=== PATIENT | female | born 1995 | race Two or more races ===

== ENCOUNTER 2023-04-05 14:15 | Inpatient (IN) | payer OTHER ==
[~2023-04-05] VITALS: Ht 162.6 cm; Wt 70.8 kg
[2023-04-14] MEDS ORDERED: RINGERS SOLUTION,LACTATED 1,000 ML IV SCH (01:30)
[2023-04-14 01:45] LABS: HEMATOCRIT 30.9 % (36.0-45.00); HEMOGLOBIN 10.1 g/dL (12.0-15.00); MEAN CELL VOLUME 77.8 fL (80.00-100.00); MEAN CORPUSCULAR HEMOGLOBIN 25.5 pg (27.00-32.0); MEAN CORPUSCULAR HGB CONC 32.8 g/dl (32.0-36.0); PLATELET COUNT 271 K/uL (150-450); RED BLOOD COUNT 3.97 M/uL (4.00-6.00); RED CELL DISTRIBUTION WIDTH 16.5 % (11.5-14.5)
[2023-04-14] MEDS ORDERED: PRENATAL TABLE1 EAC1 PO (01:45)
[2023-04-14 02:08] LABS: CALCIUM 8.4 mg/dL (8.5-10.1); CREATININE SERUM 0.68 mg/dL (0.55-1.02); GFR 102.29; POTASSIUM 3.35 mEq/L (3.5-5.1)
[2023-04-14 02:20] LABS: PH,URINE 6.5 (5.0-8.0); URINE APPEARANCE Clear; URINE BILIRRUBIN Negative (NEGATIVE); URINE BLOOD Negative; URINE COLOR Yellow; URINE GLUCOSE Negative (NEGATIVE); URINE LEUKOCYTE Negative; URINE NITRATE Negative; URINE PROTEIN 30 (NEGATIVE)
[2023-04-14 02:35] LABS: PROTHROMBIN TIME 9.7 SECONDS (9.0-11.5)
[2023-04-14 02:36] LABS: INR < 0.93; PARTIAL THROMBOPLASTIN TIME 29.1 SECONDS (22.0-34.0)
[2023-04-14 02:42] LABS: URINE BACTERIA 231.7 uL (0.0-1933); URINE EPITHELIAL CELLS 9.2 uL (0.0-38.8)
[2023-04-14 02:47] LABS: URINE RBC 1.4 uL (0.0-20.8)
[2023-04-14] MEDS ORDERED: ERYTHROMYCIN BASE 1 GM TUBE OP ONE (03:18)
[2023-04-14] MEDS ORDERED: CHLORHEXIDINE GLUCONATE 120 ML BOTTLE TOP ONE (03:18)
[2023-04-14] MEDS ORDERED: IBUprofen 400 MG TABLET PO PRN (08:45)
[2023-04-14] MEDS ORDERED: LIDOCAINE HCL 1% 200MG/20ML VIAL IJ SCH (09:15)
[2023-04-14] MEDS ORDERED: CHLORHEXIDINE GLUCONATE 120 ML BOTTLE TOP SCH (09:15)
[2023-04-14] MEDS ORDERED: ERYTHROMYCIN BASE 1 GM TUBE OP SCH (09:15)
[2023-04-14] MEDS ORDERED: OXYTOCIN 10 UNITS/ML VIAL IM STA (09:15)
[2023-04-14 12:47] LABS: HEMATOCRIT 30.4 % (36.0-45.00); HEMOGLOBIN 9.8 g/dL (12.0-15.00); MEAN CELL VOLUME 76.7 fL (80.00-100.00); MEAN CORPUSCULAR HEMOGLOBIN 24.8 pg (27.00-32.0); MEAN CORPUSCULAR HGB CONC 32.3 g/dl (32.0-36.0); PLATELET COUNT 268 K/uL (150-450); RED BLOOD COUNT 3.96 M/uL (4.00-6.00); RED CELL DISTRIBUTION WIDTH 16.8 % (11.5-14.5)
[2023-04-14 15:58] LABS: ABG PH 7.381 (7.35-7.45); ABG PO2 34.5 mmHg (80-100); ABG pCO2 36.6 mmHg (35-45); BASE EXCESS -3.2 mmol/l; BICARBONATE 21.2 mmol/l (23-25); SaO2 64.3 %
[2023-04-14 15:59] LABS: Tco2 22.4 mmol/l; o2 21 %
== END 2023-04-16 11:49 | disposition home or self-care (01) | DRG 807 ==
LOC: OB/GYN 04-14 01:14 → LDR 04-14 01:14 → OB/GYN 04-14 08:37 → LDR 04-19 14:15
PROVIDERS: Obstetrics & Gynecology; ADMIT Specialist; ATTEND Specialist
PROC: 10E0XZZ Delivery of Products of Conception, External Approach (ICD-10-PCS; principal; 2023-04-14)
PROC: 0KQM0ZZ Repair Perineum Muscle, Open Approach (ICD-10-PCS; 2023-04-14)
PROC: 4A1HXCZ Monitoring of Products of Conception, Cardiac Rate, External Approach (ICD-10-PCS; 2023-04-14)
DX: O70.1 Second degree perineal laceration during delivery (principal); Z37.0 Single live birth; Z3A.39 39 weeks gestation of pregnancy; Z20.822 Contact with and (suspected) exposure to COVID-19

== ENCOUNTER 2023-04-12 06:57 | Outpatient (CLI) | payer OTHER | END 2023-04-12 17:45 | disposition home or self-care (01) | LOC: NST 06:57 | PROVIDERS: ATTEND Specialist | DX: Z34.83 Encounter for supervision of other normal pregnancy, third trimester (principal) ==

== ENCOUNTER 2024-12-17 09:38 | Outpatient (CLI) | payer OTHER ==
[~2024-12-17 09:38] MED LIST: PRENATAL TABLE1 EAC1 PO
== END 2024-12-17 09:40 | disposition home or self-care (01) ==
LOC: PRENATAL 09:38
PROVIDERS: ATTEND Obstetrics & Gynecology Maternal & Fetal Medicine
DX: O44.02 Complete placenta previa NOS or without hemorrhage, second trimester (principal); Z3A.21 21 weeks gestation of pregnancy